=== PATIENT | female | born 1985 | race Two or more races ===

== ENCOUNTER 2021-11-19 08:24 | Emergency (ER) | payer OTHER ==
[2021-11-19 08:35] VITALS: BP 131/97
--- NOTE | 2021-11-19 08:52 | ED Physician Documentation ---
PD HPI URI - Stated complaint Stated Complaint: BODY ACHE - Chief complaint Chief Complaint: General - History obtained from History obtained from: Patient - History of Present Illness Timing - onset: Today, Last night Timing duration: Days (1) Timing details: Abrupt onset, Still present Associated symptoms: Chills, Nasal congestion, NVD (nausea with some vomiting overnight. No diarrhea.). No: Dry cough Contributing factors: Sick contact (her daughter was positive for COVID last week, but other kids were negative with viral type sumptoms. Had run out of home tests, so here for testing and symptoms.) Similar symptoms before: Has not had sx before Recently seen: Not recently seen Review of Systems Constitutional: reports: Chills, Myalgias, Fatigue. denies: Fever Nose: reports: Congestion Throat: denies: Sore throat Cardiac: denies: Chest pain / pressure Respiratory: denies: Dyspnea, Cough GI: reports: Nausea, Vomiting. denies: Abdominal Pain, Diarrhea Skin: denies: Rash, Lesions Neurologic: reports: Headache. denies: Altered mental status PD PAST MEDICAL HISTORY - Past Medical History Cardiovascular: None Respiratory: None Endocrine/Autoimmune: None - Present Medications Home Medications: Ambulatory Orders Medication Instructions Recorded Confirmed Cetirizine [ZyrTEC] 10 mg PO BID #14 tablet 11/19/21 Ondansetron Odt [Zofran] 4 mg TL Q6H PRN #10 tablet 11/19/21 - Allergies Allergies/Adverse Reactions: Allergies Allergy/AdvReac Type Severity Reaction Status Date / Time amoxicillin Allergy Rash Verified 11/19/21 09:21 PD ED PE NORMAL - Vitals Vital signs reviewed: Yes - General General: Alert and oriented X 3, No acute distress, Well developed/nourished - HEENT HEENT: Ears normal, Moist mucous membranes, Pharynx benign - Neck Neck: Supple, no meningeal sign, No adenopathy - Cardiac Cardiac: RRR, No murmur - Respiratory Respiratory: Clear bilaterally - Abdomen Abdomen: Soft, Non tender - Derm Derm: Normal color, Warm and dry - Extremities Extremities: Normal ROM s pain, No edema - Neuro Neuro: Alert and oriented X 3, No motor deficit, Normal speech Results - Vitals Vitals: Oxygen O2 Source Room air - Labs Labs: Laboratory Tests 11/19/21 09:25 Nasal Adenovirus (PCR) NOT DETECTED Nasal B. parapertussis DNA (PCR) NOT DETECTED Nasal Coronavir 229E PCR NOT DETECTED Nasal Coronavir HKU1 PCR NOT DETECTED Nasal Coronavir NL63 PCR NOT DETECTED Nasal Coronavir OC43 PCR NOT DETECTED Nasal Enterovir/Rhinovir PCR NOT DETECTED Nasal Influenza B PCR NOT DETECTED Nasal Influenza A PCR NOT DETECTED Nasal Parainfluen 1 PCR NOT DETECTED Nasal Parainfluen 2 PCR NOT DETECTED Nasal Parainfluen 3 PCR NOT DETECTED Nasal Parainfluen 4 PCR NOT DETECTED Nasal RSV (PCR) NOT DETECTED Nasal B.pertussis DNA PCR NOT DETECTED Nasal C.pneumoniae (PCR) NOT DETECTED Blaine Human Metapneumo PCR NOT DETECTED Nasal M.pneumoniae (PCR) NOT DETECTED Nasal SARS-CoV-2 (PCR) NOT DETECTED PD MEDICAL DECISION MAKING - ED course Complexity details: reviewed results (curently not COVID, but could be early versus other viral illness. ), considered differential, d/w patient Departure - Departure Disposition: 01 Home, Self Care Clinical Impression: Nausea Upper respiratory infection Qualifiers: URI type: unspecified URI Qualified Code(s): J06.9 - Acute upper respiratory infection, unspecified Condition: Stable Record reviewed to determine appropriate education?: Yes Instructions: ED Viral Syndrome Prescriptions: Ondansetron Odt [Zofran] 4 mg TL Q6H PRN #10 tablet PRN Reason: Nausea / Vomiting Cetirizine [ZyrTEC] 10 mg PO BID #14 tablet Comments: Your respiratory PCR panel test was negative for those viruses tested on the panel which includes COVID, flu, RSV, several other common viral illnesses. It does not test for all viruses of course so presume you have some other viral illness developing. Its possible that it could be just early on in the PCR test missed it. You can always retest rapid COVID test in a couple of days if you are still feeling badly. For now I would suggest rest at home today and tomorrow and drink lots of fluids for hydration. Ondansetron every 6 hours if needed for nausea. Add cetirizine antihistamine twice daily to help with congestion and sinus pressure. To that add Tylenol every 4-6 hours if needed for pains or fevers. Consider taking it regularly for the next day or 2 presuming your symptoms will be somewhat consistent. Recheck if not improving well over the next few days and return if worsening. Forms: Activity restrictions Discharge Date/Time: 11/19/21 10:51
[2021-11-19] MEDS ORDERED: ONDANSETRON ODT 4 MG TABLET TL STA (09:03)
[2021-11-19] MEDS ORDERED: ACETAMINOPHEN 325 MG TABLET PO STA (09:03)
[2021-11-19] MEDS ORDERED: CETIRIZINE 10 MG TABLET PO STA (09:03)
[2021-11-19 10:26] LABS: B. PARAPERTUSSIS- RESP PCR PAN NOT DETECTED; B. PERTUSSIS- RESP PCR PANEL NOT DETECTED; C. PNEUMONIAE- RESP PCR PANEL NOT DETECTED; CORONAVIRUS 229E-RESP PCR NOT DETECTED; CORONAVIRUS HKU1-RESP PCR NOT DETECTED; CORONAVIRUS NL63-RESP PCR NOT DETECTED; CORONAVIRUS OC43-RESP PCR NOT DETECTED; HUMAN METAPNEUMOVIRUS NOT DETECTED; INFLUENZA A- RESP PCR PANEL NOT DETECTED; INFLUENZA B - RESP PCR PANEL NOT DETECTED; M. PNEUMONIAE- RESP PCR PANEL NOT DETECTED; PARAINFLUENZA VIRUS 1 NOT DETECTED; PARAINFLUENZA VIRUS 2 NOT DETECTED; PARAINFLUENZA VIRUS 3 NOT DETECTED; PARAINFLUENZA VIRUS 4 NOT DETECTED; RHINOVIRUS/ENTEROVIRUS NOT DETECTED; RSV- RESP PCR PANEL NOT DETECTED; SARS-CoV-2 -RESP PCR PANEL NOT DETECTED
== END 2021-11-19 10:51 | disposition home or self-care (01) ==
LOC: ED 08:24
DX: J06.9 Acute upper respiratory infection, unspecified (principal); Z20.822 Contact with and (suspected) exposure to COVID-19
CPT/HCPCS: 87633; 99283; A9270; Q0162

== ENCOUNTER 2022-02-18 13:02 | Emergency (ER) | payer OTHER ==
[2022-02-18 13:17] VITALS: BP 130/84
--- NOTE | 2022-02-18 13:53 | XRAY Report ---
PROCEDURE: Knee 4 View RT INDICATIONS: R knee pain TECHNIQUE: 4 views of the right knee(s) were acquired. COMPARISON: None. FINDINGS: Bones: No fractures or dislocations. No suspicious bony lesions. The knee joint spaces are relativ brodie well-preserved. Soft tissues: No joint effusion. No suspicious soft tissue calcifications. IMPRESSION: No significant plain film abnormality can be seen. If it would be helpful for clinical management decision making, please consider a dedicated, schedule d knee MRI for further evaluation (assuming that there is no contraindication). Reviewed by: Gopal Mackey MD on 02/18/2022 12:52 PM [facility] Approved by: Gopal Mackey MD on 02/18/2022 12:52 PM [facility] Station ID: [id number]
--- NOTE | 2022-02-18 15:25 | ED Physician Documentation ---
History of Present Illness - Stated complaint Stated Complaint: RT KNEE PAIN - Chief complaint Chief Complaint: Ext Problem - History obtained from History obtained from: Patient - History of Present Illness Timing: How many weeks ago (several weeks) Pain level max: 8 Pain level now: 5 - Additonal information Additional information: 36-year-old female presents to the emergency department with right knee pain ongoing for the past several weeks. Worse with walking, better with rest. She states that she did used to be a runner but does not run anymore. She states that she has had a meniscus injury in the left knee. She states that she has seen her primary care provider and they are talking about referring her to physical therapy. She had an x-ray but does not know the results. Does not recall any specific trauma. No numbness or tingling. No swelling. No skin changes. Review of Systems Constitutional: denies: Fever GI: denies: Vomiting Musculoskeletal: denies: Neck pain, Back pain Neurologic: denies: Focal weakness, Numbness PD PAST MEDICAL HISTORY - Past Medical History Cardiovascular: None Respiratory: None Endocrine/Autoimmune: None - Present Medications Home Medications: Ambulatory Orders Medication Instructions Recorded Confirmed Cetirizine [ZyrTEC] 10 mg PO BID #14 tablet 11/19/21 Ondansetron Odt [Zofran] 4 mg TL Q6H PRN #10 tablet 11/19/21 HYDROcod/ACETAM 5/325 [[facility] 5/325] 1 - 2 ea PO Q6H PRN #14 tablet 02/18/22 - Allergies Allergies/Adverse Reactions: Allergies Allergy/AdvReac Type Severity Reaction Status Date / Time amoxicillin Allergy Rash Verified 02/18/22 13:15 - Social History Does the pt smoke?: No Smoking Status: Never smoker Does the pt drink ETOH?: No Does the pt have substance abuse?: No - Immunizations Immunizations are current?: Yes PD ED PE NORMAL - Vitals Vital signs reviewed: Yes - General General: Alert and oriented X 3, No acute distress, Well developed/nourished - HEENT HEENT: Moist mucous membranes - Abdomen Abdomen: Normal bowel sounds, Soft, Non tender, Non distended - Female Female : Deferred, Pt declined, Health Professor present, Other - Derm Derm: Warm and dry - Extremities Extremities: Other (R knee - Mild tenderness along the medial joint line. ACL, MCL, PCL, LCL are intact. She does have pain with meniscus testing and there is a clicking. Neurovascularly intact. Otherwise normal exam of the knee. No joint effusion) - Neuro Neuro: Alert and oriented X 3 - Psych Psych: Normal mood, Normal affect Results - Vitals Vitals: Vital Signs - 24 hr 02/18/22 13:15 Temperature 36.5 C Heart Rate 80 Respiratory 16 Rate Blood Pressure 130/84 H O2 Saturation 98 Oxygen O2 Source Room air - Rads (name of study) Left knee x-ray Radiology: Final report received, See rad report (No acute abnormality) PD Medical Decision Making - ED course Complexity details: reviewed results, considered differential, d/w patient ED course: 36-year-old female with what appears to be a right knee meniscus injury. Full range of motion presently. Placed an articulating knee brace for comfort. 10 to 40 degrees. We will prescribe pain medication for home. We will have her follow-up with orthopedics for further care and likely MRI. No acute findings on x-ray today. Patient counseled regarding signs and symptoms for which I believe and urgent re-evaluation would be necessary. Patient with good understanding of and agreement to plan and is comfortable going home at this time This document was made in part using voice recognition software. While efforts are made to proofread this document, sound alike and grammatical errors may occur. Departure - Departure Disposition: 01 Home, Self Care Clinical Impression: Knee pain Qualifiers: Chronicity: acute Laterality: right Qualified Code(s): M25.561 - Pain in right knee Injury of meniscus of knee Qualifiers: Encounter type: initial encounter Laterality: right Qualified Code(s): S83.8X1A - Sprain of other specified parts of right knee, initial encounter Condition: Good Instructions: ED Meniscal Injury Knee Poss Follow-Up: Pietro Dempsey DO [Physician No Access] - [facility] [Provider Group] [facility] [Provider Group] KENDRA FLETCHER ARNP [Physician No Access] - Within 1 week Prescriptions: HYDROcod/ACETAM 5/325 [[facility] 5/325] 1 - 2 ea PO Q6H PRN #14 tablet PRN Reason: Pain Comments: Please follow-up with your doctor for further care. You should have an MRI performed of your knee. You likely have a meniscus injury and will likely need a referral to an orthopedist. I have listed local orthopedist on your discharge paperwork. Use the hinged knee brace to help stabilize the knee and take pressure off of your meniscus. Please return if you worsen. Your prescriptions were sent to [facility] in [place]. I am prescribing a short course of narcotic pain medication for you. These are potentially dangerous and addictive medications that should be used carefully. These medications may constipate you. Take an ltky-tjm-itlqvlx stool softener (docusate) twice daily with plenty of water while taking these medications. If you go 24 hours without a bowel movement, take wgek-lkw-xrmshie miralax, per package instructions. Do not drink or drive while taking these medications. If you received narcotic or sedating medications while in the emergency department, do not drive for 24 hours. Store this medication in a safe, secure place and out of reach of children. It is a violation of federal law to give or sell this medication to another person or to use in a manner other than prescribed. The ED will not refill narcotic prescriptions, including prescriptions lost or stolen. To dispose of unwanted medications: 1. [facility] [address] in [place] has a medication drop box. They accept prescription medications (in pill form) Friday through Friday 9:00 a.m. to 5:00 p.m. 2. The [facility] [place] [employer] accepts prescription medications (in pill form only) for disposal year round. Call for more information. 3. Contact the [facility] for the next [facility] sponsored prescription drug collection event. , [phone], or [phone]; Forms: Activity restrictions Discharge Date/Time: 02/18/22 16:04
== END 2022-02-18 16:04 | disposition home or self-care (01) ==
LOC: ED 13:02
DX: S83.8X1A Sprain of other specified parts of right knee, initial encounter (principal); X58.XXXA Exposure to other specified factors, initial encounter
CPT/HCPCS: 99283

== ENCOUNTER 2022-02-25 09:08 | Outpatient (CLI) | payer OTHER ==
--- NOTE | 2022-02-25 11:45 | MRI Report ---
PROCEDURE: KNEE WO - RT INDICATIONS: RIGHT KNEE PAIN TECHNIQUE: Noncontrast sagittal PD fast spin echo and T2 fast spin echo with fat saturation, sagittal 3-D spoile d GE with fat saturation; coronal T1 spin echo and PD fast spin echo with fat saturation, and axial P D fast spin echo with fat saturation through the knee. COMPARISON: Right knee radiographs 02/18/2022 FINDINGS: Image quality: Excellent. Anterior cruciate ligament: Intact. Posterior cruciate ligament: Intact. Medial collateral ligament: Trace fluid superficial to the midportion of the medial collateral ligam ent is most likely related to the adjacent meniscal tear rather than an medial collateral ligament sp rain. Lateral collateral ligament: Intact. Medial meniscus: There is horizontal oblique tearing of the posterior horn and body of the medial me niscus extending to the inner third of the tibial articular surface and the free edge margin. A lobul ar parameniscal cyst is seen along the nonarticular margin measuring up to 29 x 4 x 11 mm Lateral meniscus: Intact. Medial and lateral tendons: The semimembranosus tendon insertions appear intact. Visualized portion s of the pes anserinus tendons appear normal. The popliteus tendon appears intact. Iliotibial band appears normal. Anterior structures: The quadriceps and patellar tendons appear intact. Patellar alignment is james l. No femoral trochlear dysplasia or ventral trochlear prominence. No edema in the infrapatellar fa t pad. Bones: No acute trabecular bone injury or fracture. Articular cartilages: No focal cartilage defect. Soft tissues: There is a physiologic amount of joint fluid. There is no significant medial poplitea l cyst. The musculature surrounding the knee is normal in bulk. IMPRESSION: 1.Horizontally tearing of the posterior horn and body of the medial meniscus extending to the inner t hird of the tibial articular surface and the free edge margin. A lobular parameniscal cyst is seen on the nonarticular margin. 2.Cruciate and collateral ligaments are intact. No acute trabecular bone injury. Lateral meniscus is intact. Reviewed by: Delfino Montero MD on 02/25/2022 11:44 AM PST Approved by: Delfino Montero MD on 02/25/2022 11:44 AM PST Station ID: [id number]
== END 2022-02-25 09:09 | disposition home or self-care (01) ==
LOC: DI 09:08
PROVIDERS: ATTEND Physician Assistant
DX: S83.241A Other tear of medial meniscus, current injury, right knee, initial encounter (principal)

== ENCOUNTER 2022-03-26 11:12 | Outpatient (CLI) | payer OTHER ==
--- NOTE | 2022-03-26 09:32 | XRAY Report ---
PROCEDURE: Knee 3 View RT INDICATIONS: RIGHT KNEE PAIN TECHNIQUE: 3 views of the right knee(s) were acquired. COMPARISON: 02/18/2022 FINDINGS: Bones: No fractures or dislocations. No suspicious bony lesions. Soft tissues: No joint effusion. No suspicious soft tissue calcifications. IMPRESSION: No evidence of acute bony abnormality of the right knee. No significant arthritic change . Reviewed by: Jeff Loya MD on 03/26/2022 9:31 AM PST Approved by: Jeff Loya MD on 03/26/2022 9:31 AM PST Station ID: [id number]
== END 2022-03-26 14:53 | disposition home or self-care (01) ==
LOC: DI.WOS 11:12
PROVIDERS: ATTEND Orthopaedic Surgery
DX: M25.561 Pain in right knee (principal)

== ENCOUNTER 2022-05-01 07:22 | Day surgery (SDC) | payer OTHER ==
[~2022-05-01 07:22] MED LIST: BACITRACIN ZINC OINT 1 PACKET TOP ONE; BUPIVACAINE 0.5% PF 30 ML VIAL ONE; EPINEPHrine 1 MG/ML AMP ONE
[2022-05-01] MEDS ORDERED: ACETAMINOPHEN 500 MG TABLET PO ONE (07:31)
[2022-05-01] MEDS ORDERED: CEFAZOLIN 2G/50ML 0.9% NS 2 GM/50 ML BAG IV ONE (07:31)
[2022-05-01] MEDS ORDERED: CELECOXIB 100 MG CAPSULE PO ONE (07:31)
[2022-05-01] MEDS ORDERED: PROPOFOL 200 MG/20 ML VIAL IVP ONE (07:39)
[2022-05-01] MEDS ORDERED: ROPIVACAINE 0.5% PF 20 ML VIAL ONE (07:39)
[2022-05-01 07:44] LABS: HCG UR QUAL NEGATIVE
[2022-05-01] MEDS ORDERED: DEXAMETHASONE 4 MG/ML VIAL ONE (07:44)
[2022-05-01] MEDS ORDERED: fentaNYL 100 MCG/2 ML VIAL ONE ×2 (07:45→10:31)
[2022-05-01] MEDS ORDERED: MIDAZOLAM 2 MG/2 ML VIAL ONE (07:45)
--- NOTE | 2022-05-01 07:54 | ANESTHESIA ---
Pre-Anesthesia VS, & Labs - Diagnosis right knee meniscal tear - Procedure right knee arthroscopy Height: 5 ft 6.5 in Weight (kg): 69 kg Body Mass Index: 24.1 BMI Classification: Normal - NPO >8 hours - Is Patient ?: No Home Medications and Allergies Low-Ogestrel 1 tab PO DAILY 04/01/22 Multivitamin 1 each PO DAILY 04/01/22 Allergies/Adverse Reactions: Allergies Allergy/AdvReac Type Severity Reaction Status Date / Time amoxicillin Allergy Rash Verified 02/18/22 13:15 Anes History & Medical History - Medical History Cardiovascular: reports: None Pulmonary: reports: None Gastrointestinal: reports: None Urinary: reports: None Musculoskeletal: reports: None Endocrine/Autoimmune: reports: None Skin: reports: None Smoking Status: Never smoker - Surgical History Orthopedic: reports: Arthroscopic surgery Exam General: Alert, Oriented x3 Dental: WNL Mouth Opening: Greater than 4 Fingerbreadths Neck Mobility: Normal Mallampati classification: I Respiratory: Lungs clear Cardiovascular: Regular rate Plan Anesthesia Type: General, Adductor Block Regional Block: Per Surgeon's request for Post Op pain control Consent for Procedure(s) Verified and Reviewed: Yes Code Status: Attempt Resuscitation ASA classification: 1-Healthy patient Is this case an emergency?: No
[2022-05-01] MEDS ORDERED: LACTATED RINGERS 1,000 ML IV ONE ×2 (08:02→10:41)
[2022-05-01] MEDS ORDERED: ePHEDrine 50 MG/ML VIAL IVP PRN (08:28)
[2022-05-01] MEDS ORDERED: NALOXONE 0.4 MG/ML VIAL IVP PRN (08:28)
[2022-05-01] MEDS ORDERED: fentaNYL 100 MCG/2 ML VIAL IVP PRN (08:28)
[2022-05-01] MEDS ORDERED: ONDANSETRON 4 MG/2 ML VIAL IVP PRN (08:28)
[2022-05-01] MEDS ORDERED: MORPHINE 2 MG/ML CARPUJECT IVP PRN (08:28)
[2022-05-01] MEDS ORDERED: ATROPINE ABBOJECT 1 MG/10 ML SYRINGE IVP PRN (08:28)
[2022-05-01] MEDS ORDERED: HYDROmorphone 0.5 MG/0.5 ML SYRINGE IVP PRN (08:28)
[2022-05-01] MEDS ORDERED: METOCLOPRAMIDE 10 MG/2 ML VIAL IVP PRN (08:28)
[2022-05-01] MEDS ORDERED: ONDANSETRON 4 MG/2 ML VIAL ONE (08:42)
[2022-05-01] MEDS ORDERED: LACTATED RINGERS 1,000 ML IV SCH (09:00)
[2022-05-01] MEDS ORDERED: EPINEPHrine 1 MG/ML AMP IR ONE (09:18)
[2022-05-01] MEDS ORDERED: BACITRACIN ZINC OINT 1 PACKET TOP ONE (09:20)
[2022-05-01] MEDS ORDERED: BUPIVACAINE 0.5% PF 30 ML VIAL INFIL ONE ×2 (09:57)
--- NOTE | 2022-05-01 10:09 | OPERATIVE REPORT ---
Operative Report - General Procedure Date: 05/01/22 Planned Procedure: Arthroscopy right knee, meniscal repair versus partial medial meniscectomy Pre-Op Diagnosis: Torn medial meniscus right knee Procedure Performed: Arthroscopic partial medial meniscectomy right knee Post Op Diagnosis: Same as preoperative diagnosis - Procedure Note Primary Surgeon: Juan Trinh MD Secondary Surgeon: Beba HOLLINGSWORTH Anesthesia Provider: Afia Schaeffer CRNA Anesthesia Technique: General LMA Estimated Blood Loss (mL): 5 Indications: This is a 28-year-old woman with several month history of chronic medial sided activity related knee pain unresponsive to nonoperative treatment including physical therapy. She had well localized medial joint line tenderness on exam, otherwise normal exam. She does have some discomfort with [facility] and Thessaly test. Her MRI scan suggested a tear of the posterior horn of the medial meniscus, horizontal cleavage right knee. She signed informed consent agreeing to arthroscopy right knee with either partial meniscectomy or meniscal repair. She has had arthroscopy to her opposite left knee many years ago for the same problem and has had favorable outcome. Findings: she had a degenerative type tear to the posterior horn the medial meniscus. This consisted of friable posterior horn medial meniscal tissue with horizontal cleavage tear. The inferior leaflet is largely frayed tissue that was loose. The superior leaflet is relatively intact. This meniscal tissue was so friable that it would not be suitable for repair. The remainder of the knee appeared good. The patellofemoral joint appeared normal. The lateral compartment appeared normal the intercondylar notch and cruciate ligaments were intact and appeared normal. The patient had a stable knee exam under anesthesia prior to arthroscopy with anesthesia. Complications: No complications - Other Other Information/Narrative: Patient was brought to the operating room table and placed in the supine position. After satisfactory general anesthesia been achieved, the right lower extremity was prepped and draped in a sterile manner in the usual fashion. A la teral thigh pulse was applied. A pneumatic tourniquet was applied to the proximal right thigh over padding. A timeout procedure was performed by the entire operating team and all were in agreement. A 3 portal arthroscopic technique was utilized. The antral lateral portal was used for the diagnostic arthroscope. The anteromedial portal was used for instrument portal. The superior lateral portal was used for outflow cannula. Complete diagnostic arthroscopy was performed using the SECU4 4.0 mm diagnostic arthroscope with video camera. Inflow was brought to the arthroscope using the Arthrex arthroscopic pump. Complete diagnostic arthroscopy was performed with the abnormal findings being confined to the medial compartment. There was subtle softening of the posterior femoral condyle adjacent to the medial meniscal tear. The tissue was shredded to the posterior horn, unstable tissue, mostly the inferior leaf of the horizontal cleavage tear. This was a nonrepairable meniscus. With valgus stress, the medial compartment was opened but the compartment was tight. The meniscal ablation was performed to a stable rim utilizing the small radiofrequency 50 degree angle probe and a small meniscal shaver. Care was taken to avoid articular cartilage. Most of the inferior leaf of the meniscus had to be removed, leaving a superior leaf intact. The meniscal rim that remained was stable to meniscal probing. Photographs were obtained intraoperatively. The 3 incisions were closed with single 4-0 nylon. The incision sites were infiltrated with half percent Marcaine. Gauze and Mike wrap was applied to the right knee. A physician physical therapist assistant was medically necessary to help with prepping and draping, positioning, protection of vital structures, assistance during the procedure including wound closure, dressing and/or splinting.
[2022-05-01] MEDS ORDERED: ONDANSETRON ODT 4 MG TABLET TL PRN (10:16)
[2022-05-01] MEDS ORDERED: oxyCODONE 5 MG TABLET PO PRN (10:16)
[2022-05-01] MEDS ORDERED: ACETAMINOPHEN 500 MG TABLET PO PRN (10:16)
[2022-05-01] MEDS ORDERED: CELECOXIB 100 MG CAPSULE PO PRN (10:16)
[2022-05-01] MEDS ORDERED: oxyCODONE 5 MG TABLET ONE (11:01)
[2022-05-01 11:02] VITALS: BP 118/84
--- NOTE | 2022-05-01 12:12 | ANESTHESIA POST OP EVALUATION ---
Anesthesia Post Eval - Post Anesthesia Eval Vitals: Last Vital Signs Temp 37.3 C 05/01/22 10:49 Pulse 60 05/01/22 11:01 Resp 12 05/01/22 11:01 BP 118/84 H 05/01/22 11:01 Pulse Ox 100 05/01/22 11:01 O2 Flow Rate CV Function Including HR & BP: Stable Pain Control: Satisfactory Nausea & Vomiting: Negative Mental Status: Baseline Respiratory Status: Airway Patent Hydration Status: Satisfactory Anesthesia Complications: None
== END 2022-05-01 07:23 | disposition home or self-care (01) ==
LOC: SDS 07:22
PROVIDERS: ATTEND Orthopaedic Surgery
DX: S83.241A Other tear of medial meniscus, current injury, right knee, initial encounter (principal)
CPT/HCPCS: 29881; 81025; A9270; C1713; J0690; J2795; J7120

== ENCOUNTER 2023-04-14 09:15 | Outpatient (CLI) | payer OTHER ==
--- NOTE | 2023-04-14 17:24 | XRAY Report ---
PROCEDURE: Knee 4 View RT INDICATIONS: RIGHT KNEE PAIN TECHNIQUE: 4 views of the knee(s) were acquired. COMPARISON: 03/26/2022. FINDINGS: Bones: No fractures or dislocations. No suspicious bony lesions. There has been progression of os teoarthritic changes of the right knee. Mild medial femorotibial compartment joint space narrowing wi th minimal subchondral sclerosis and subchondral lucency involving the weightbearing portions of the right medial femoral condyle. Marginal osteophytes. Soft tissues: No substantial knee joint effusion. No suspicious soft tissue calcifications or masses . IMPRESSION: Right knee without acute osseous abnormalities. Interval progression of osteoarthritic changes involv ing the medial femorotibial compartment. There is now mild joint space narrowing as well as subchondr al degenerative changes of the weightbearing portions of the right medial femoral condyle. Consider f urther evaluation with MRI. Reviewed by: Brady Otto MD on 04/14/2023 5:23 PM PST Approved by: Brady Otto MD on 04/14/2023 5:23 PM PST Station ID: [id number]
== END 2023-04-14 23:59 | disposition home or self-care (01) ==
LOC: DI.WOS 09:15
PROVIDERS: ATTEND Orthopaedic Surgery
DX: M17.11 Unilateral primary osteoarthritis, right knee (principal)